=== PATIENT | female | born 1985 | race Caucasian/White ===

== ENCOUNTER 2016-08-16 11:51 | Emergency (ER) | payer BC | END 2016-08-16 13:43 | disposition home or self-care (01) | LOC: FASTR 11:51 | DX: L03.114 Cellulitis of left upper limb (principal); L73.2 Hidradenitis suppurativa; Z79.84 Long term (current) use of oral hypoglycemic drugs; Z79.899 Other long term (current) drug therapy; F17.210 Nicotine dependence, cigarettes, uncomplicated | CPT/HCPCS: 36415; 80053; 85025 ==